=== PATIENT | male | born 1990 | race Caucasian/White ===

== ENCOUNTER 2020-07-06 21:12 | Emergency (ER) | payer OTHER ==
[~2020-07-06] VITALS: Ht 167.6 cm; Wt 61.4 kg
[2020-07-06] MEDS ORDERED: LIDOCAINE 1% 10 ML VIAL SQ ONE (23:00)
[2020-07-06] MEDS ORDERED: BACITRACIN 0.9 GM PACKET OINTMENT TP ONE (23:00)
[2020-07-06] MEDS ORDERED: PERTUSS(ACELL),DIPH,TET VAC/PF 0.5 ML SYRINGE IM ONE (23:00)
[2020-07-06 23:50] VITALS: BP 108/69
== END 2020-07-07 01:02 | disposition home or self-care (01) ==
LOC: EMS 21:15
DX: S61.211A Laceration without foreign body of left index finger without damage to nail, initial encounter (principal); W26.0XXA Contact with knife, initial encounter; Y93.89 Activity, other specified; Y92.89 Other specified places as the place of occurrence of the external cause; Y99.8 Other external cause status
CPT/HCPCS: 12001; 90471; 90715; 99283; J3490

== ENCOUNTER 2020-07-09 19:57 | Emergency (ER) | payer OTHER ==
[~2020-07-09] VITALS: Ht 165.1 cm; Wt 56.8 kg
[2020-07-09 20:57] VITALS: BP 118/65
== END 2020-07-09 20:58 | disposition home or self-care (01) ==
LOC: EMS 19:57
DX: S61.212D Laceration without foreign body of right middle finger without damage to nail, subsequent encounter (principal); X58.XXXD Exposure to other specified factors, subsequent encounter
CPT/HCPCS: 99281; Z7502

== ENCOUNTER 2020-07-16 20:21 | Emergency (ER) | payer SELFPAY ==
[~2020-07-16] VITALS: Ht 170.2 cm; Wt 59.1 kg
[2020-07-16 20:24] VITALS: BP 117/67
== END 2020-07-16 21:51 | disposition home or self-care (01) ==
LOC: EMS 20:31
DX: S61.211D Laceration without foreign body of left index finger without damage to nail, subsequent encounter (principal); X58.XXXD Exposure to other specified factors, subsequent encounter
CPT/HCPCS: 99281; Z7502